=== PATIENT | male | born 1985 | race Caucasian/White ===

== ENCOUNTER 2019-07-17 14:11 | Emergency (ER) | payer OTHER ==
[2019-07-17] MEDS: IBUPROFEN 800 MG TAB PO (15:51)
[2019-07-17] MEDS: HYDROCODONE/APAP (10/325) TAB PO (15:52)
[2019-07-17] MEDS: LORAZEPAM 0.5 MG TAB PO (15:52)
== END 2019-07-17 16:58 | disposition home or self-care (01) ==
LOC: FTE 16:58
DX: S52.614A Nondisplaced fracture of right ulna styloid process, initial encounter for closed fracture (principal); W20.8XXA Other cause of strike by thrown, projected or falling object, initial encounter; Y92.89 Other specified places as the place of occurrence of the external cause; Z87.891 Personal history of nicotine dependence
CPT/HCPCS: 29125; 73130-RT; 99283-25